=== PATIENT | male | born 1965 | race Caucasian/White ===

== ENCOUNTER 2018-08-31 13:19 | Emergency (ER) | payer OTHER, SELFPAY ==
[2018-08-31] VITALS (7 sets, daily range): BP systolic 111–129; BP diastolic 56–67; PULSE 54–71; RESP 12–18; TEMP 36.7; O2SAT 94–98; BMI 41.5
--- NOTE | 2018-08-31 13:51 | ED_ITS ---
HPI - Dizziness General Chief Complaint: Dizziness Stated Complaint: DIZZY Time Seen by Provider: 08/31/18 13:23 Source: patient Mode of arrival: ambulatory Limitations: no limitations History of Present Illness HPI Narrative: Patient is a 53-year-old male presents with vertigo and dizziness. History of the same previously taking meclizine. He had some meclizine which she took today but it did not seem to help. He feels like the room was spinning he feels nauseated no vomiting and no weakness. he has no chest pain or palpitations or shortness of breath MD complaint: dizziness Related Data Home Medications Medication Instructions Recorded Confirmed aspirin 81 mg PO DAILY #0 11/25/16 08/31/18 lisinopril 10 mg PO DAILY #0 11/25/16 08/31/18 metformin [Fortamet] 1,000 mg PO [facility] #0 11/25/16 08/31/18 ascorbic acid (vitamin C) [Vitamin 500 mg PO DAILY 08/31/18 08/31/18 C] atorvastatin 40 mg PO BEDTIME 08/31/18 08/31/18 cholecalciferol (vitamin D3) 2,000 unit PO DAILY 08/31/18 08/31/18 [Vitamin D3] cyanocobalamin (vitamin B-12) 2,500 mcg SUBLINGUAL DAILY 08/31/18 08/31/18 [Vitamin B-12] cyclobenzaprine 10 mg PO TID PRN 08/31/18 08/31/18 gabapentin 800 mg PO BEDTIME 08/31/18 08/31/18 melatonin 5 mg PO BEDTIME PRN 08/31/18 08/31/18 Previous Rx's Medication Instructions Recorded meclizine 25 mg PO TID PRN #20 tab 08/31/18 ondansetron 4 mg PO Q6-8H PRN #10 tab 08/31/18 Allergies Allergy/AdvReac Type Severity Reaction Status Date / Time No Known Allergies Allergy Uncoded 08/19/17 12:25 Review of Systems Review of Systems ROS Unobtainable: All systems reviewed & are unremarkable except as noted in HPI and below Constitutional Denies chills, Denies fever(s), Denies lethargy and Denies weakness Eyes Denies change in vision, Denies eye discharge, Denies irritation and Denies loss of vision ENT Ears, Nose, Mouth, and Throat: Reports vertigo and Reports dizziness Cardiovascular Denies dyspnea and Denies dyspnea on exertion Respiratory Denies cough, Denies dyspnea, Denies dyspnea on exertion and Denies wheezing Gastrointestinal Gastrointestinal: Denies abdominal pain, Denies change in bowel habits, Denies diarrhea, Denies nausea and Denies vomiting Genitourinary Denies hematuria, Denies flank pain, Denies urinary incontinence and Denies urinary urgency Musculoskeletal Denies back pain, Denies muscle weakness, Denies numbness and Denies tingling Integumentary/Breasts Denies pruritus, Denies erythema, Denies rash and Denies wounds Neurologic Reports vertigo, Reports dizziness, Denies loss of vision, Denies numbness, Denies tingling and Denies weakness Allergic/Immunologic Denies wheezing [facility] Medical History Diabetes (Acute) Hyperlipidemia (Acute) Hypertension (Acute) Obstructive sleep apnea (Acute) Vertigo (Acute) Social History Smoking Status: Never smoker Social History Smoking Status: Never smoker Exam Initial Vital Signs Initial Vital Signs: Vital Signs Temperature 98.1 F 08/31/18 13:34 Pulse Rate 60 08/31/18 13:34 Respiratory Rate 12 08/31/18 13:34 Blood Pressure 129/67 08/31/18 13:34 Pulse Oximetry 95 08/31/18 13:34 GENERAL: Alert overweight male no acute distress HEENT: Head atraumatic,EOMI, pupils reactive, CARDIOVASCULAR: Regular rate and rhythm without murmurs, rubs or gallops. RESPIRATORY: Breath sounds equal bilaterally, no wheezes rales or rhonchi. ABDOMEN: Soft, nontender. Normoactive bowel sounds all 4 quadrants. No guarding or rebound. EXTREMITIES: Normal range of motion, no clubbing or edema. Neurovascularly intact NEUROLOGICAL: Alert and oriented x4.Normal gait and speech. Cranial nerves II through XII grossly intact. Good [id number], good [id number], strength equal bilaterally, no dysarthria or aphasia, sensation in tact to soft touch bilaterally, no visual changes, no facial droop SKIN: Warm, dry, no laceration, no petechiae, no rashes or lesions. Scores NIH Stroke Scale Level of Conciousness: Alert, keenly responsive Ask month/age: Answers both questions correctly. Open/close eyes, close hand: Performs both tasks correctly Best gaze horizontal: Normal Visual conrad: No visual loss Facial palsy: Normal symetrical movement Left arm drift: No drift for full 10 sec Right arm drift: No drift for full 10 sec Left leg drift: No drift for full 10 sec Right leg drift: No drift for full 10 sec Limb ataxia: Absent Sensory on face/arms/legs: Normal, no sensory loss Best language: No aphasia, normal Dysarthria: Normal Extinction or inattention: No abnormality Total NIH Stroke scale score: 0 Course Orders Ordered: ED Orders 08/31/18 14:10 Complete Blood Count AUTO DIFF Stat Comprehensive Metabolic Panel Stat 08/31/18 14:52 CT head/brain wo con Stat Sodium Chloride (Normal Saline 0.9%) 1,000 mls @ 1,000 mls/hr IV CONT WERNER Last Infusion: 08/31/18 15:41 Dose: 0 mls/hr Admin: 08/31/18 14:22 Dose: 1,000 mls/hr Discontinued Medications Diazepam (Valium) 2 mg IV NOW ONE Stop: 08/31/18 13:52 Last Admin: 08/31/18 14:21 Dose: 2 mg Diazepam (Valium) 2 mg IV NOW ONE Stop: 08/31/18 16:22 Last Admin: 08/31/18 16:33 Dose: 2 mg Ondansetron HCl (Zofran) 4 mg IV NOW ONE Stop: 08/31/18 13:52 Last Admin: 08/31/18 14:21 Dose: 4 mg Vital Signs - 8 hr 08/31/18 13:34 08/31/18 14:31 08/31/18 16:00 Temperature 98.1 F Pulse Rate 60 71 58 L Respiratory Rate 12 18 16 Blood Pressure 129/67 Blood Pressure [Right Arm] 111/58 L 119/58 L Pulse Oximetry 95 94 98 MDM - Dizziness Lab Data Attestation: I reviewed the patient's lab results. Result diagrams: 08/31/18 14:10 08/31/18 14:10 Lab Results 08/31/18 08/31/18 Range/Units 14:10 14:10 WBC 7.3 (4.5-11.0) X10^3/uL RBC 5.18 (4.5-5.9) X10^6/uL Hgb 14.3 (13.5-17.5) g/dL Hct 42.8 (41-53) % MCV 82.7 (80-100) fL MCH 27.6 (26-34) PG MCHC 33.4 (30-36) % RDW 14.8 (11.6-14.8) % Plt Count 224 (150-400) X10^3/uL Neut % (Auto) 72.3 (50-75) % Lymph % (Auto) 20.4 L (25-40) % [place] % (Auto) 5.7 (3-14) % Eos % (Auto) 0.6 L (2-4) % Baso % (Auto) 1.0 (0-2) % Neut # (Auto) 5300 (0693-8818) /uL Lymph # (Auto) 1500 (7686-5598) /uL [place] # (Auto) 400 (0-900) /uL Eos # (Auto) 0 (0-450) /uL Baso # (Auto) 100 (0-100) /uL Sodium 143 (137-145) mmol/L Potassium 4.0 (3.4-5.1) mmol/L Chloride 101 (98-107) mmol/L Carbon Dioxide 30 (22-32) mmol/L BUN 12 (9-20) mg/dL Creatinine 1.00 (0.66-1.25) mg/dL Estimated GFR > 60.0 (>60) mL/min BUN/Creatinine Ratio 12.0 (6-22) Glucose 108 H (70-100) mg/dL Calcium 9.8 (8.4-10.2) mg/dL Total Bilirubin 1.1 (0.2-1.3) mg/dL AST 31 (17-59) IU/L ALT 46 (21-72) IU/L Alkaline Phosphatase 111 (38-126) U/L Total Protein 8.4 H (6.3-8.2) g/dL Albumin 5.0 (3.5-5.0) g/dL Globulin 3.4 (1.7-4.1) g/dL Albumin/Globulin Ratio 1.5 (1.0-2.8) Imaging Data CT scan - head: Radiologist's impression: PROCEDURE: CT HEAD/BRAIN WO CON INDICATIONS: diizzy TECHNIQUE: Noncontrast 4.5 mm thick angled axial sections acquired from the foramen magnum to the vertex, with coronal and sagittal reformats. For radiation dose reduction, the following was used: automated exposure control, adjustment of mA and/or kV according to patient size. COMPARISON: [facility], MR, BRAIN (IAC) W&WO CONTRAST, 12/13/2015, 17:18. FINDINGS: Image quality: Excellent. CSF spaces: Basal cisterns are patent. No extra-axial fluid collections. Ventricles are normal in size and shape. Brain: No midline shift. No intracranial masses or hemorrhage. Nagel-white matter interface is normal. Skull and face: Calvarium and visualized facial bones are intact, without suspicious lesions. Sinuses: Visualized sinuses and mastoids are clear. IMPRESSION: No acute intracranial disease process. Dictated by: France Oates MD, PhD on 08/31/2018 at 15:54 ECG Data Attestation: I personally reviewed and interpreted this ECG as follows: Prior ECG tracings: not available for review Interpretation: Normal sinus rhythm rate 61 p.r. interval 133 QRS [address] changes or T-wave inversion MDM Narrative Medical decision making narrative: Patient overall not feeling now much better after Valium he is not vomiting a L fluid decision for head CT. CT head negative still not feeling great. He got a 2nd dose of Valium The patient is ambulating tolerating fluids. Symptoms are definitely worse when he turns his head. Discharge Plan Departure Patient Disposition: Home Clinical Impression: Vertigo Instructions: DI for Vertigo Activity Restrictions/Additional Instructions: *You have been diagnosed with vertigo *What to do: This should stop spontaneously. Try to increase her fluid in *Continue to take medications as directed Meclizine 25 mg 3 times a day if needed for dizziness Zofran 4 mg sublingual every 6-8 hours if needed for nausea vomiting *Follow up with your primary care provider in 2-3 days *Return to ER if you should have worsening dizziness weakness inability to stand or walk persistent vomiting or any new, worsening or concerning symptoms Prescriptions: New meclizine 25 mg tablet 25 mg PO TID PRN (Reason: dizziness) Qty: 20 RF: 0 ondansetron 4 mg tablet,disintegrating 4 mg PO Q6-8H PRN (Reason: nausea and vomiting) Qty: 10 RF: 0 No Action aspirin 81 MG tablet,delayed release (DR/EC) 81 mg PO DAILY Qty: 0 RF: 0 metformin [Fortamet] 500 mg tablet extended release 24hr 1,000 mg PO AMCC Qty: 0 RF: 0 lisinopril 10 mg tablet 10 mg PO DAILY Qty: 0 RF: 0 cyclobenzaprine 10 mg tablet 10 mg PO TID PRN (Reason: Muscle Spasm) RF: 0 atorvastatin 40 mg tablet 40 mg PO BEDTIME RF: 0 gabapentin 800 mg tablet 800 mg PO BEDTIME RF: 0 cyanocobalamin (vitamin B-12) [Vitamin B-12] 2,500 mcg Tablet, Sublingual 2,500 mcg SUBLINGUAL DAILY RF: 0 ascorbic acid (vitamin C) [Vitamin C] 500 mg Tablet 500 mg PO DAILY RF: 0 cholecalciferol (vitamin D3) [Vitamin D3] 2,000 unit Capsule 2,000 unit PO DAILY RF: 0 melatonin 5 mg Capsule 5 mg PO BEDTIME PRN (Reason: Insomnia) RF: 0
[2018-08-31] MEDS: ONDANSETRON 4 MG/2 ML INJ IV (14:21)
[2018-08-31] MEDS: diazePAM 10 MG/2 ML SYRINGE 2 MG IV ×2 (14:21→16:33)
[2018-08-31] MEDS: SODIUM CHLORIDE 0.9% 1,000 ML 1000 ML IV (14:22)
[2018-08-31 14:24] LABS: Add Manual Diff / Slide Review NO; Basophils Absolute Auto 100 /uL (0-100); Eosinophils Absolute Auto 0 /uL (0-450); Eosinophils Percent Auto 0.6 % (2-4); Hematocrit 42.8 % (41-53); Hemoglobin 14.3 g/dL (13.5-17.5); Lymphocytes Absolute Auto 1500 /uL (1100-4500); Lymphocytes Percent Auto 20.4 % (25-40); Mean Corpuscular HGB Conc 33.4 % (30-36); Mean Corpuscular Hemoglobin 27.6 PG (26-34); Mean Corpuscular Volume 82.7 fL (80-100); Monocytes Absolute Auto 400 /uL (0-900); Monocytes Percent Auto 5.7 % (3-14); Neutrophils Absolute Auto 5300 /uL (1500-7000); Neutrophils Percent Auto 72.3 % (50-75); Platelet Count 224 X10^3/uL (150-400); Red Blood Cell Count 5.18 X10^6/uL (4.5-5.9); Red Cell Distribution Width 14.8 % (11.6-14.8); White Blood Cell Count 7.3 X10^3/uL (4.5-11.0)
[2018-08-31 14:42] LABS: Alanine Aminotransferase 46 IU/L (21-72); Albumin Globulin Ratio 1.5 (1.0-2.8); Alkaline Phosphatase 111 U/L (38-126); Aspartate Aminotransferase 31 IU/L (17-59); Bilirubin Total 1.1 mg/dL (0.2-1.3); Blood Urea Nitrogen 12 mg/dL (9-20); Calcium 9.8 mg/dL (8.4-10.2); Carbon Dioxide 30 mmol/L (22-32); Chloride 101 mmol/L (98-107); Estimated Glomerular Filt Rate > 60.0 mL/min (>60); Globulin 3.4 g/dL (1.7-4.1); Glucose 108 mg/dL (70-100); HEMOLYSIS < 15 (0-50); Sodium 143 mmol/L (137-145); Total Protein 8.4 g/dL (6.3-8.2)
--- NOTE | 2018-08-31 14:52 | DI.CT.S_ITS ---
PROCEDURE: CT HEAD/BRAIN WO CON INDICATIONS: diizzy TECHNIQUE: Noncontrast 4.5 mm thick angled axial sections acquired from the foramen magnum to the vertex, with coronal and sagittal reformats. For radiation dose reduction, the following was used: automated exposure control, adjustment of mA and/or kV according to patient size. COMPARISON: [facility], MR, BRAIN (IAC) W&WO CONTRAST, 12/13/2015, 17:18. FINDINGS: Image quality: Excellent. CSF spaces: Basal cisterns are patent. No extra-axial fluid collections. Ventricles are normal in size and shape. Brain: No midline shift. No intracranial masses or hemorrhage. Nagel-white matter interface is normal. Skull and face: Calvarium and visualized facial bones are intact, without suspicious lesions. Sinuses: Visualized sinuses and mastoids are clear. IMPRESSION: No acute intracranial disease process. Dictated by: France Oates MD, PhD on 08/31/2018 at 15:54 Approved by: France Oates MD, PhD on 08/31/2018 at 15:56
--- NOTE | 2018-08-31 17:06 | PC.NURSE ---
Pt was able to ambulate down the alejandra and tolerated it well provided no sudden head movement. Pt stated he believed he was capable of going home.
== END 2018-08-31 18:29 | disposition home or self-care (01) ==
PROVIDERS: Emergency Provider Emergency Medicine
DX: R42 Dizziness and giddiness (principal); R11.0 Nausea
CPT/HCPCS: 70450; 80053; 85025; 93005; 93041; 96361; 96374; 96375; 99284; J2405; J3360

== ENCOUNTER 2023-12-08 03:06 | Emergency (ER) | payer OTHER, SELFPAY ==
[2023-12-08 03:17] VITALS: BP 146/65; PULSE 84; RESP 18; TEMP 36.8; O2SAT 96; BMI 41.8
--- NOTE | 2023-12-08 03:44 | ED.SKABFB ---
HPI - Skin/Abscess/Foreign Bdy General Chief complaint: Wound/Laceration Stated complaint: large abscess on rt shoulder/back 2 days Time Seen by Provider: 12/08/23 03:12 Source: patient and family Mode of arrival: Ambulatory History of Present Illness HPI narrative: Patient presents for 2 days of swelling on his right back/shoulder. Has had a chronic area of swelling on that side, but over the last 2-3 days it has become more swollen and painful. He tried to get his to pop it, but she could not and so he was in the ER for evaluation. Related Data Home Medications Medication Instructions Recorded Confirmed aspirin 81 mg tablet,delayed 81 mg PO DAILY ##0 11/25/16 08/31/18 release lisinopril 10 mg tablet 10 mg PO DAILY ##0 11/25/16 08/31/18 metformin 500 mg tablet,extended 1,000 mg PO [facility] ##0 11/25/16 08/31/18 release 24hr (osmotic) (Fortamet) ascorbic acid (vitamin C) 500 mg 500 mg PO DAILY 08/31/18 08/31/18 tablet (Vitamin C) atorvastatin 40 mg tablet 40 mg PO BEDTIME 08/31/18 08/31/18 cholecalciferol (vitamin D3) 50 2,000 unit PO DAILY 08/31/18 08/31/18 mcg (2,000 unit) capsule (Vitamin D3) cyanocobalamin (vitamin B-12) 2,500 mcg sublingual DAILY 08/31/18 08/31/18 2,500 mcg sublingual tablet (Vitamin B-12) cyclobenzaprine 10 mg tablet 10 mg PO TID PRN Muscle Spasm 08/31/18 08/31/18 gabapentin 800 mg tablet 800 mg PO BEDTIME 08/31/18 08/31/18 melatonin 5 mg capsule 5 mg PO BEDTIME PRN Insomnia 08/31/18 08/31/18 Previous Rx's Medication Instructions Recorded meclizine 25 mg tablet 25 mg PO TID PRN dizziness #20 tabs 08/31/18 ondansetron 4 mg disintegrating 4 mg PO Q6-8H PRN nausea and 08/31/18 tablet vomiting #10 tabs Allergies Allergy/AdvReac Type Severity Reaction Status Date / Time No Known Drug Allergies Allergy Verified 12/08/23 03:16 Patient History Medical History Obstructive sleep apnea Diabetes Hypertension Hyperlipidemia Vertigo Social History Smoking Status: Former smoker Smoking Status: Former smoker alcohol intake frequency: holidays/special occasions only Substance Use Type: does not use Exam Initial Vital Signs Initial Vital Signs: Vital Signs Temperature 98.3 F 12/08/23 03:17 Pulse Rate 84 12/08/23 03:17 Respiratory Rate 18 12/08/23 03:17 Blood Pressure 146/65 H 12/08/23 03:17 Pulse Oximetry 96 12/08/23 03:17 Oxygen Delivery Method Room Air 12/08/23 03:17 Const: Awake, alert, no acute distress, nontoxic appearing Skin: 4 cm diameter area of induration and tenderness to palpation Neuro: AO x3, CN II-XII grossly intact, moves all extremities Procedures Abscess I/D I&D #1: Site: back Side (if applicable): right Local Anesthetic: lidocaine 1% and with epi Technique: incised with #11 blade Irrigation: Yes Packing used?: none Course Vital Signs Vital signs: Vital Signs - 8 hr 12/08/23 03:17 Temperature 98.3 F Pulse Rate 84 Respiratory Rate 18 Blood Pressure 146/65 H Pulse Oximetry 96 Oxygen Delivery Method Room Air MDM - Skin/Abscess/Foreign Bdy MDM Narrative Medical decision making narrative: Shoulder cyst. Incised and drained per procedure note. Large sac removed with some pus. Copiously irrigated. Majority of cyst wall removed, however there may be some fragments remaining. Discharge Plan Departure Patient Disposition: Home Clinical Impression: Infected sebaceous cyst Instructions: DI for Epidermal Cyst Activity Restrictions/Additional Instructions: A cyst slightly larber than a lesly onion was removed from the right shoulder. Keep your wound clean and dry. Apply ice to areas of swelling. Take Tylenol and ibuprofen as needed for discomfort. Prescriptions: No Action aspirin 81 MG tablet,delayed release (DR/EC) 81 mg PO DAILY Qty: 0 metformin [Fortamet] 500 mg tablet extended release 24hr 1,000 mg PO [facility] Qty: 0 lisinopril 10 mg tablet 10 mg PO DAILY Qty: 0 cyclobenzaprine 10 mg tablet 10 mg PO TID PRN (Reason: Muscle Spasm) atorvastatin 40 mg tablet 40 mg PO BEDTIME gabapentin 800 mg tablet 800 mg PO BEDTIME cyanocobalamin (vitamin B-12) [Vitamin B-12] 2,500 mcg Tablet, Sublingual 2,500 mcg SUBLINGUAL DAILY ascorbic acid (vitamin C) [Vitamin C] 500 mg Tablet 500 mg PO DAILY cholecalciferol (vitamin D3) [Vitamin D3] 2,000 unit Capsule 2,000 unit PO DAILY melatonin 5 mg Capsule 5 mg PO BEDTIME PRN (Reason: Insomnia) meclizine 25 mg tablet 25 mg PO TID PRN (Reason: dizziness) Qty: 20 0RF ondansetron 4 mg tablet,disintegrating 4 mg PO Q6-8H PRN (Reason: nausea and vomiting) Qty: 10 0RF Referrals: ProviderSarah [Primary Care Provider] - Stand Alone Forms: Patient Portal/API
== END 2023-12-08 03:51 | disposition home or self-care (01) ==
PROVIDERS: Emergency Provider Emergency Medicine
DX: L72.3 Sebaceous cyst (principal)
CPT/HCPCS: 10060; 99281; 99283

== ENCOUNTER → 2025-01-24 07:35 | Outpatient (CLI) | payer OTHER, SELFPAY ==
--- NOTE | 2025-01-24 07:36 | DI.MRI.S_ITS ---
PROCEDURE: MR KNEE LT WO CON INDICATIONS: pain in left knee TECHNIQUE: Noncontrast sagittal PD fast spin echo and T2 fast spin echo with fat saturation, sagittal 3-D FLASH with fat saturation; coronal T1 spin echo and PD fast spin echo with fat saturation, and axial PD fast spin echo with fat saturation through the knee. COMPARISON: None. FINDINGS: Quality: Adequate Menisci: Medial meniscus: Partial tear of posterior root. Lateral meniscus: Intact Cruciate ligaments: Anterior cruciate ligament: Intact Posterior cruciate ligament: Intact Collateral ligaments: Medial collateral ligament: Edema along the ligament with no visible tear. Lateral collateral ligament complex: Intact Extensor mechanism: Quadriceps tendon: Intact Patellar tendon: Intact Retinaculum: Intact Fat pads: Unremarkable Cartilage: Deep cartilage fissuring in the central patella. Bones: No fracture. Fluid spaces: Joint: Small effusion. Popliteal cyst: Small popliteal cyst with partial rupture. Pes anserinus bursa: Trace fluid. Other: Focal fluid along the anterior knee and suspected tear of the prepatellar quadriceps continuation. IMPRESSION: Partial tear medial meniscus posterior root. High-grade cartilage defect in the patellar cartilage. Grade 1 medial collateral ligament sprain. Possible tear of prepatellar quadriceps continuation versus prepatellar bursitis. Mild pes anserinus bursitis. Dictated by: Huey Jordan M.D. on 01/24/2025 at 11:51 Approved by: Huey Jordan M.D. on 01/24/2025 at 11:58
== END ==
LOC: MRI 07:35
PROVIDERS: Visit Provider Nurse Practitioner Family
DX: S83.242A Other tear of medial meniscus, current injury, left knee, initial encounter (principal); S83.412A Sprain of medial collateral ligament of left knee, initial encounter; M25.562 Pain in left knee; M71.562 Other bursitis, not elsewhere classified, left knee
CPT/HCPCS: 73721

== ENCOUNTER 2025-02-02 12:07 | Day surgery (SDC) | payer OTHER, SELFPAY ==
--- NOTE | 2025-02-02 | PATH_ITS ---
[facility] Accession Number: [id number] No. of containers..02 Tissue . 01 Material submitted: . PART A: colon - CECAL POLYP PART B: rectum - RECTAL POLYP . 01 Diagnosis: A. CECAL POLYP: Tubular adenoma. . B. RECTAL POLYP: Hyperplastic polyp. MRV 02/09/2025 1905 Local . 01 Electronically signed: . Felicia Motley MD, Pathologist NPI- [id number] . 01 Gross description: . A. Received in formalin with two patient identifiers and cecal polyp. The specimen consists of one guerrero soft tissue fragment measuring 0.2 x 0.2 x 0.2 cm. The specimen is entirely submitted in cassette A1. B. Received in formalin with two patient identifiers and rectal polyp. The specimen consists of one guerrero polypoid soft tissue fragment measuring 0.5 x 0.4 x 0.2 cm. The specimen is entirely submitted in cassette B1. ([id number]) /MRV 02/07/2025 2137 Local . 01 Pathologist provided ICD-10: D12.0, D12.8 . 01 CPT . 534114, 236396 Specimen Comment: A courtesy copy of this report has been sent to [phone] Performed at: [address] [facility] [address], [place], [place] [id number] MD Dony Luke MD Phone: [phone]
[2025-02-02 12:37] VITALS: BP 134/73; PULSE 78; RESP 16; TEMP 36.2; O2SAT 96
[2025-02-02] MEDS: LACTATED RINGERS 1,000 ML 84 ML IV (12:49)
--- NOTE | 2025-02-02 13:10 | PM.HP.IH.1 ---
History of Present Illness History of Present Illness Date Patient Seen: 02/02/25 Time Patient Seen: 13:10 Chief complaint: SDC Narrative: Nj is a 59-year-old man here for a screening colonoscopy. His last one was about 5 years ago. He did not have polyps. He believes his biological father had colon cancer but he does not know the details because he was adopted. [facility] Medical History (Updated 02/02/25 @ 13:11 by Christiano Melendez MD) Obstructive sleep apnea Diabetes Hypertension Hyperlipidemia Vertigo Social History Smoking Status: Former smoker Meds Home Medications and Allergies Home Medications ?Medication ?Instructions ?Recorded ?Confirmed ?Type lisinopril 10 mg tablet 10 mg PO DAILY ##0 11/25/16 02/02/25 History metformin 500 mg tablet,extended 1,000 mg PO [facility] ##0 11/25/16 02/02/25 History release 24hr (osmotic) (Fortamet) ascorbic acid (vitamin C) 500 mg 500 mg PO DAILY 08/31/18 08/31/18 History tablet (Vitamin C) atorvastatin 40 mg tablet 40 mg PO BEDTIME 08/31/18 02/02/25 History cholecalciferol (vitamin D3) 50 2,000 unit PO DAILY 08/31/18 08/31/18 History mcg (2,000 unit) capsule (Vitamin D3) cyanocobalamin (vitamin B-12) 2,500 mcg sublingual DAILY 08/31/18 08/31/18 History 2,500 mcg sublingual tablet (Vitamin B-12) cyclobenzaprine 10 mg tablet 10 mg PO TID PRN Muscle Spasm 08/31/18 08/31/18 History gabapentin 800 mg tablet 800 mg PO BEDTIME 08/31/18 02/02/25 History meclizine 25 mg tablet 25 mg PO TID PRN dizziness #20 tabs 08/31/18 Rx melatonin 5 mg capsule 5 mg PO BEDTIME PRN Insomnia 08/31/18 08/31/18 History ondansetron 4 mg disintegrating 4 mg PO Q6-8H PRN nausea and 08/31/18 Rx tablet vomiting #10 tabs Allergies Allergy/AdvReac Type Severity Reaction Status Date / Time No Known Drug Allergies Allergy Verified 02/02/25 12:32 Exam Vital Signs (past 8 hours): - 02/02/25 12:37 Temperature 97.1 F L Pulse Rate 78 Respiratory Rate 16 Blood Pressure 134/73 Pulse Oximetry 96 Oxygen Delivery Method Room Air Oxygen Delivery Method Room Air Const General: No acute distress Objective Labs Labs: Laboratory Results - last 24 hr 02/02/25 12:46 POC Whole Bld Glucose 93 Assessment & Plan Assessment and plan (1) Family history of colon cancer: Status: Acute Plan Colonoscopy Time-Based Coding :: [TOTAL MINUTES] spent with patient and on the chart (including review of chart, obtaining history, exam, reviewing outside data, placing orders, documenting exam and treatment plan, and counseling patient) on [DATE]. [employer] Document charge(s): No
--- NOTE | 2025-02-02 13:44 | PM.OP.COLON ---
Operative Date/Time/Diagnoses Date of procedure: 02/02/25 Time of procedure: 13:44 Pre-op diagnosis: Family history of colon cancer Post-op diagnosis: same Procedure & Clinicians Study performed: Colonoscopy Same procedure(s) as scheduled: Yes Surgeon: Christiano Melendez Anesthesia Type: MAC +/- Procedure Notes Procedure in detail: Surgeon: Christiano Melendez MD Anesthesia: Grant Hogan MD Procedure: The patient was brought to the endoscopy suite, placed in left lateral decubitus position. The patient was connected to monitoring devices. A time-out was performed. Sedation was administered. Once the patient was adequately sedated, a digital rectal exam was performed and was normal. The scope was then inserted and advanced to the cecum where the appendiceal orifice was identified and photographed. The scope was then slowly withdrawn over greater than 6 minutes. The mucosa was thoroughly inspected. There was a 1 mm polyp in the cecum removed with a cold snare. There was a 2 mm polyp in the distal rectum removed with a cold snare. The scope was retroflexed in the rectum. No other abnormalities were found. The scope was straightened and removed. The patient was awakened and brought to recovery. Scope withdrawal time: 11 minutes Sedation time: 14 minutes EBL: 2 mL Findings: Small polyps in the cecum and rectum Post-procedure Disposition: PACU
[2025-02-02 13:46] VITALS: BP 127/72; PULSE 81; RESP 16; TEMP 36.8; O2SAT 96
[2025-02-02 13:52] VITALS: BP 128/78; PULSE 75; RESP 18; TEMP 36.8; O2SAT 96
== END 2025-02-02 14:02 | disposition home or self-care (01) ==
PROVIDERS: Referring Provider Surgery; Visit Provider Surgery
PROC: 0DJD8ZZ Inspection of Lower Intestinal Tract, Via Natural or Artificial Opening Endoscopic (ICD-10-PCS; CPT 45378; principal; 2025-02-02 13:30)
DX: Z12.11 Encounter for screening for malignant neoplasm of colon (principal); Z87.891 Personal history of nicotine dependence; D12.0 Benign neoplasm of cecum; K62.1 Rectal polyp
CPT/HCPCS: 45385; 82962; J2250; J2704